=== PATIENT | male | born 1970 | race Caucasian/White ===

== ENCOUNTER 2018-01-01 19:51 | Emergency (ER) | payer OTHER ==
[2018-01-01] MEDS ORDERED: MORPHINE SULFATE 10 MG/ML SOL IV PRN (20:03)
[2018-01-01] MEDS ORDERED: NITROGLYCERIN 0.4 MG TAB SL PRN (20:03)
[2018-01-01] MEDS ORDERED: ASPIRIN 81 MG CHEWABLE CTB PO STA (20:03)
[2018-01-01] MEDS ORDERED: METOPROLOL TARTRATE 5 MG/5 ML SOL IV ONE ×3 (20:06→21:31)
[2018-01-01 20:16] LABS: BASOPHILS % (AUTO) 1 % (0-3); EOSINOPHILS % (AUTO) 8 % (0-9); HEMATOCRIT 52 % (39-53); HEMOGLOBIN 16.4 gm/dl (13.5-17.7); LYMPHOCYTES % (AUTO) 29.1 % (10-50); MEAN CORPUSCULAR HEMOGLOBIN 25.4 pg (27.0-32.0); MEAN CORPUSCULAR HGB CONC 31.6 gm/dl (32.0-36.0); MONOCYTES % (AUTO) 6.3 % (0-12); NEUTROPHILS % (AUTO) 55.6 % (37-80)
[2018-01-01 20:20] VITALS: TEMP 97.5
[2018-01-01 20:25] LABS: LACTIC ACID 0.8 mMol/L (0.0-2.0); MEAN CORPUSCULAR VOLUME 80 fL (80-100)
[2018-01-01] MEDS ORDERED: ASPIRIN 81 MG CHEWABLE CTB ONE (20:25)
[2018-01-01 20:28] LABS: INR 0.97 (0.86-1.12)
[2018-01-01] MEDS: SODIUM CHLORIDE 0.9% FLUSH 10 ML SOL IV PRN ×2 (20:36→20:55)
[2018-01-01 20:38] LABS: ALBUMIN 3.1 gm/dl (3.4-5.0); ALKALINE PHOSPHATASE 92 IU/L (46-116); ALT 36 IU/L (14-63); AST 15 IU/L (15-37); BILIRUBIN,TOTAL 0.3 mg/dl (0.2-1.0); BLOOD UREA NITROGEN 15 mg/dl (7-18); CALCIUM 8.6 mg/dl (8.5-10.1); CARBON DIOXIDE 33.3 mEq/L (21-32); CHLORIDE 101 mMol/L (98-107); CREATINE KINASE 79 U/L (39-308); CREATININE 1.22 mg/dl (0.80-1.30); GLUCOSE 119 mg/dl (74-106); POTASSIUM 3.9 mMol/L (3.5-5.1); SODIUM 140 mMol/L (136-145); TOTAL PROTEIN 7.8 gm/dl (6.4-8.2); TROP I < 0.017 ng/ml (0.000-0.056)
[2018-01-01] MEDS ORDERED: SOLUMEDROL 125 MG/2 ML 125 MG/2 ML PDS IV ONE (20:46)
[2018-01-01] MEDS ORDERED: SOLUMEDROL 125 MG/2 ML 125 MG/2 ML PDS ONE (20:47)
[2018-01-01] MEDS ORDERED: ALBUTEROL/IPRATROPIUM 1 VIAL SOL INH ONE (20:49)
[2018-01-01] MEDS ORDERED: ALBUTEROL/IPRATROPIUM 1 VIAL SOL ONE (21:12)
[2018-01-01] MEDS ORDERED: MAGNESIUM CITRATE SOL PO PRN (21:32)
[2018-01-01 21:46] LABS: APPEARANCE,URINE Clear; BILIRUBIN,URINE NEGATIVE (NEGATIVE); COLOR,URINE Yellow; GLUCOSE, URINE (UA) NEGATIVE (NEGATIVE); KETONES,URINE NEGATIVE (NEGATIVE); LEUKOCYTE ESTERASE ,URINE NEGATIVE (NEGATIVE); NITRATE,URINE NEGATIVE (NEGATIVE); OCCULT BLOOD,URINE NEGATIVE (NEG-TRACE)
[2018-01-01 21:55] LABS: BACTERIA 1+ (< 1+); CRYSTALS NEGATIVE (0-3 AVE/HPF); EPITHELIAL CELLS NEGATIVE (SQUAMOUS); RBC,URINE NEGATIVE (0-3AV/HPF); WBC,URINE 0-1 (0-5AV/HPF)
[2018-01-01 22:06] VITALS: O2SAT 93
[2018-01-01 22:17] VITALS: RESP 18
[2018-01-01 23:24] VITALS: BP 136/96; PULSE 90
== END 2018-01-01 23:17 | disposition home or self-care (01) | DRG 204 ==
LOC: ED 19:51
DX: R06.02 Shortness of breath (principal); I10 Essential (primary) hypertension; R00.0 Tachycardia, unspecified; J44.9 Chronic obstructive pulmonary disease, unspecified; K59.00 Constipation, unspecified; J98.4 Other disorders of lung
CPT/HCPCS: 71046; 74019; 80053; 81001; 82550; 84484; 85025; 85610; 85730; 93005; 96374; 96375; 99284; J2930; J3490